=== PATIENT | male | born 1980 | race African-American/Black ===

== ENCOUNTER 2025-02-10 13:41 | Outpatient (AMB) | payer OTHER, SELFPAY ==
--- OUTSIDE RECORDS SUMMARY | 2024-12-25 17:00 | XMS_ITS ---
Author Organization [facility] Address [address] [place] [id number] Care Team Providers Care Residential Mental Health Worker Name Role Phone [facility] Care Provi polly [phone] [facility], Nursing Unavailable [phone] Migration, Provider Unavailable Unavailable REASON FOR VISIT Multum To Medispan Conversion Encounter Medications Medication SIG (Take, Route, Fr equency, Duration) Notes Start Date End Date Status Naltrexone HCl 50 MG 1 tab(s) orally once a day Active Encounters Encounter Location Date Provider Diagnosis [address] [id number] 12/25/2024 Provider Migration Plan Of Treatment No Information Progress Notes * Dionisio OSPINA JrDOB:[birth year] (45 yo M)Acc No.[id number]:12/25/2024 Patient: Susi Dionisio STERLING Jr Provider: :1980 A ge:44 Y S ex:Male Date:12/25/2024 Address:[address] [place], [place] [id number] Pcp:[facility] nter Subjective: * Chief Complaints: * 1 . Multum To Medispan Conversion Encounter. * Medical History: * Medications: T aking Naltrexone HCl 50 MG Tablet 1 tab(s) orally once a day Objective: * Vitals: Assessment: Plan: * Treatment: * Images: Billing Information: * Visit Code: * Procedure Codes: * Electronic signature of Prov ider Migration on 02/10/2025 at 04:42 PM EDT Sign off status: Pending * Provider: Date: 0 12/25/2024 Generated for Joana guzman/Rosina/Umang on: 1 04:42 PM EDT
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
[2025-02-10 14:10] VITALS: BP 129/58; PULSE 62; O2SAT 98; BMI 32.1
--- OUTSIDE RECORDS SUMMARY | 2025-02-10 16:42 | XMS_ITS | Clinical Summary ---
Author Organization [address] [facility] Address [address] [place] [address] Phone Care Team Providers Care Room Service Bellhop Name Role Phone Physician, No Pcp Primary Care Provider Unavaila ble Allergies No known active allergies Medications lidocaine (LIDODERM) 5 % patchIndication s:Cervical strain, acute, initial encounter Apply 1 patch topically 1 (one) time each day for 14 days. Remove & discard patch within 12 hours or as directed by . 14 each 01/12/20 25 Encounters Date Type Department Care Team Description 12/28/2024 5:32 PM EDT - 12/28/2024 8:00 PM EDT Emergency [facility] Emergency [address] [place] [address] Kristen White MD Cervical strain, acute, initial encounter (Primary Dx); Strain of left shoulder, initial encounter; Rib contusion, left, initial encounter Discharge Disposition: Home or Self Care from Last 3 Months Surgical History Surgery Date Site/Laterality Comments OTHER SURGICAL HISTORY 05/23/2022 Right PROCEDURE: [facility] TEAEC W/WO PATCH GRAFT ILIOFEMORAL OTHER SURGICAL HISTORY 05/23/2022 PROCEDURE: [facility] TEA[facility] W/WO PATCH GRAFT DEEP PROFUNDA FEMORAL Medical History Medical History Date Comments HTN (hypertension) DX:HTN (hyper tension) Depression DX:Depression Social History Tobacco Use Types Packs/Day Years Used Date Smoking Tobacco: Every Day Cigarettes Smokeless Tobacco: Never Alcohol Use Standard Drinks/Week Comments Not Currently 0 (1 standard drink = 0.6 oz pur e alcohol) Sex and Gender Information Value Date Recorded Sex Assigned at Not on file Legal Sex Male 5:01 PM EST Gender Identity Not on file Sexual Orientation Not on file Obstetrics History Last Filed Vital Signs Vital Sign Reading Time Taken Comments Blood Pressure 120/73 12/28/2024 2:37 PM EDT Pulse 79 12/28/2024 2:37 PM EDT Temperature 36.9 C (98.4 F) 12/28/2024 2:37 PM EDT Respiratory Rate 18 12/28/2024 2:37 PM EDT Oxygen Saturation 97% 12/28/2024 2:37 PM EDT Inhaled Oxygen Concentration - - Weight 90.7 kg (200 lb) 12/28/2024 2:37 PM EDT Height 170.2 cm (5' 7 ) 12/28/2024 2:37 PM EDT Body Mass Index 31.32 12/28/2024 2:37 PM EDT Plan of Treatment Health Maintenance Due Date Last Done Comments Hepatitis B Vaccines (1 of 3 - 19+ 3-dose series) 2001 Pneumococcal Vaccine: Pediatrics (0 to 5 Years) and At-Risk Patients (6 to 49 Years) (1 of 2 - PCV) 2001 HPV Vaccines (1 - 3-dose SCDM series) 2009 Cholesterol Screening (Lipid Panel) 03/13/2022 HIV Screening 03/13/2022 Hepatitis C Screening 03/13/2022 Medicare Annual Wellness Visit 03/13/2022 Social Influencers of Health Screening 03/13/2022 Depression Screening 04/14/2024 COVID-19 Vaccine ( - season) 2024 Influenza Vaccine (#1) 2024 Hypertension/CHF/CAD Annual BMP Blood Test 10/08/2025 10/08/2024, 04/02/2023, 03/31/2023, Additional history exists DTaP,Tdap,and Td Vaccines (3 - Td or Tdap) 01/21/2033 01/21/2023, 07/26/2015 RSV Immunization Adult Patients (1 - 1-dose 75+ series) 2057 HIB Vaccines Aged Out No longer eligi ble based on patient's age to complete this topic Hepatitis A Vaccines Aged Out No long er eligible based on patient's age to complete this topic IPV Vaccines Aged Out No longer eligi ble based on patient's age to complete this topic MMR Vaccines Aged Out No longer eligi ble based on patient's age to complete this topic Meningococcal ACWY Vaccine Aged Out N o longer eligible based on patient's age to complete this topic Meningococcal B Vaccine Aged Out No l onger eligible based on patient's age to complete this topic RSV Immunization Patients Under 20 months Aged Out No longer eligible based on patient's age to complete this topic Varicella Vaccines Aged Out No longer eligible based on patient's age to complete this topic Procedures Procedure Name Priority Date/Time Associated Diagnosis Comments XR LUMBAR SPINE 2-3 VIEWS STAT 12/28/2024 6:43 PM EDT XR THORACIC SPINE 2 VIEWS STAT 12/28/2024 6:43 PM EDT XR SHOULDER 2+ VIEWS LEFT STAT 12/28/2024 6:43 PM EDT COMPREHENSIVE METABOLIC PANEL STAT 10/08/2024 8:12 PM EDT from Last 3 Months or Most Recently Relevant to Health Maintenance Results * XR Shoulder 2+ Views Left (12/28/2024 6:43 PM EDT) Anatomical Region Laterality Modality Upper Extremities, Shoulder Left Radi ographic Imaging 12/29/2024 8:09 AM EDT Impressions 12/29/2024 8:10 AM EDT Degenerative changes. No acute findings. -------- FINAL REPORT -------- Dictated By: Malcolm Garcia Dictated Date: 12/29/2024 08:09 ET Assigned Physician: Malcolm Garcia Reviewed and Electronically Signed By: Malcolm Garcia Signed Date: 12/29/2024 08:10 ET Workstation ID: [id number] Transcribed By: Self Edit Transcribed Date: 12/29/2024 08:09 ET Narrative 12/29/2024 8:10 AM EDT PROCEDURE: Radiographs of the left shoulder. HISTORY: accidental fall. COMPARISON: None. FINDINGS: 3 views of the left shoulder. There is no acute fracture or malalignment. Small glenohumeral osteophytes with mild articular surface irregularity. Minimal degenerative irregularity of the AC joint. Periarticular soft tissues are normal. Procedure Note Malcolm Garcia MD - 12/29/2024 PROCEDURE: Radiographs of the left shoulder. HISTORY: accidental fall. COMPARISON: None. FINDINGS: 3 views of the left shoulder. There is no acute fracture or malalignment.Small glenohumeral osteophytes with mild articular surface irregularity.Minimal degenerative irregularity of the AC joint. Periarticular softtissues are normal. IMPRESSION: Degenerative changes. No acute findings. -------- FINAL REPORT -------- Dictated By: Malcolm Garcia Dictated Date: 12/29/2024 08:09 ET Assigned Physician: Malcolm Garcia Reviewed and Electronically Signed By: Malcolm Garcia Signed Date: 12/29/2024 08:10 ET Workstation ID: [id number] Transcribed By: Self Edit Transcribed Date: 12/29/2024 08:09 ET Kristen White MD IMG XR PROCEDURES Final Result * XR Lumbar Spine 2-3 Views (12/28/2024 6:43 PM EDT) Anatomical Region Laterality Modality Spine, L-spine Radiographic Mindy ging 12/29/2024 8:55 AM EDT Impressions 12/29/2024 8:57 AM EDT No acute findings. -------- FINAL REPORT -------- Dictated By: Malcolm Garcia Dictated Date: 12/29/2024 08:55 ET Assigned Physician: Malcolm Garcia Reviewed and Electronically Signed By: Malcolm Garcia Signed Date: 12/29/2024 08:57 ET Workstation ID: [id number] Transcribed By: Self Edit Transcribed Date: 12/29/2024 08:55 ET Narrative 12/29/2024 8:57 AM EDT PROCEDURE: Radiographs of the lumbar spine. HISTORY: accidental fall. COMPARISON: 10/09/2024. FINDINGS: Multilevel ricardo and pedicle screw fusion hardware extending from the lower thoracic region into the lumbar region. The hardware extends superiorly out of the field of view. Superior endplate fracture at T11 with approximately 50% maximal height loss, stable compared with a CT on 10/09/2024. There is an interbody cage device at T10-11. IVC filter. Mild degenerative changes of the lower lumbar facet joints. Surgical clips are noted in the anterior pelvis. Procedure Note Malcolm Garcia MD - 12/29/2024 PROCEDURE: Radiographs of the lumbar spine. HISTORY: accidental fall. COMPARISON: 10/09/2024. FINDINGS: Multilevel ricardo and pedicle screw fusion hardware extending from the lowerthoracic region into the lumbar region. The hardware extends superiorlyout of the field of view. Superior endplate fracture at T11 with approximately 50% maximal heightloss, stable compared with a CT on 10/09/2024. There is an interbody cagedevice at T10-11. IVC filter. Mild degenerative changes of the lowerlumbar facet joints. Surgical clips are noted in the anterior pelvis. IMPRESSION: No acute findings. -------- FINAL REPORT -------- Dictated By: Malcolm Garcia Dictated Date: 12/29/2024 08:55 ET Assigned Physician: Malcolm Garcia Reviewed and Electronically Signed By: Malcolm Garcia Signed Date: 12/29/2024 08:57 ET Workstation ID: [id number] Transcribed By: Self Edit Transcribed Date: 12/29/2024 08:55 ET Kristen White MD IMG XR PROCEDURES Final Result * XR Thoracic Spine 2 Views (12/28/2024 6:43 PM EDT) Anatomical Region Laterality Modality Spine, T-spine Radiographic Mindy ging 12/29/2024 8:08 AM EDT Impressions 12/29/2024 8:09 AM EDT No acute findings. -------- FINAL REPORT -------- Dictated By: Malcolm Garcia Dictated Date: 12/29/2024 08:08 ET Assigned Physician: Malcolm Garcia Reviewed and Electronically Signed By: Malcolm Garcia Signed Date: 12/29/2024 08:09 ET Workstation ID: [id number] Transcribed By: Self Edit Transcribed Date: 12/29/2024 08:08 ET Narrative 12/29/2024 8:09 AM EDT Procedure: Radiographs of the thoracic spine. HISTORY: accidental fall. COMPARISON: None. FINDINGS: 3 views of the thoracic spine. Partially visible multisegment ricardo and pedicle screw fusion hardware in the lower thoracic region extending into the lumbar region and out of the field of view. An interbody cage device is also noted at one of the lower thoracic levels, and an IVC filter is partially visible. No significant degenerative change. Alignment is normal. No suspicious bony lesion. Normal paraspinous soft tissues. Procedure Note Malcolm Garcia MD - 12/29/2024 Procedure: Radiographs of the thoracic spine. HISTORY: accidental fall. COMPARISON: None. FINDINGS: 3 views of the thoracic spine. Partially visible multisegment ricardo andpedicle screw fusion hardware in the lower thoracic region extending intothe lumbar region and out of the field of view. An interbody cage deviceis also noted at one of the lower thoracic levels, and an IVC filter ispartially visible. No significant degenerative change. Alignment isnormal. No suspicious bony lesion. Normal paraspinous soft tissues. IMPRESSION: No acute findings. -------- FINAL REPORT -------- Dictated By: Malcolm Garcia Dictated Date: 12/29/2024 08:08 ET Assigned Physician: Malcolm Garcia Reviewed and Electronically Signed By: Malcolm Garcia Signed Date: 12/29/2024 08:09 ET Workstation ID: [id number] Transcribed By: Self Edit Transcribed Date: 12/29/2024 08:08 ET us Kristen White MD IMG XR PROCEDURES Final Result * (ABNORMAL) Comprehensive metabolic panel (10/08/2024 8:12 PM EDT) Sodium 135 133 - 145 mmol/L LAB CHEMISTRY METHOD 10/08/2024 8:[address] [facility] Potassium 3.7 3.5 - 5.5 mmol/L LAB CHEMISTRY METHOD 10/08/2024 8:54 PM [facility] Chloride 101 96 - 110 mmol/L LAB CHEMISTRY METHOD 10/08/2024 8:54 PM [facility] CO2 28 21 - 32 mmol/L LAB CHEMISTRY METHOD 10/08/2024 8:54 PM [facility] Anion Gap 6 3 - 11 LAB CHEMISTRY METHOD 10/08/2024 8:54 PM [facility] Glucose 94 70 - 100 mg/dL LAB CHEMISTRY METHOD 10/08/2024 8:54 PM [facility] BUN 11 5 - 25 mg/dL LAB CHEMISTRY METHOD 10/08/2024 8:54 PM [facility] Creatinine 0.82 0.70 - 1.30 mg/dL LAB CHEMISTRY METHOD 10/08/2024 8:54 PM [facility] eGFR 112 >=60 mL/min/1. 73m2 LAB CHEMISTRY METHOD 10/08/2024 8:54 PM [facility] Comment:Calculation based on the Chronic Kidney Disease Epidemiology Collaboration (CKD-EPI) equation refit without adjustment for race. BUN/Creatinine Ratio 13.4 LAB CHEMISTRY METHOD 10/08/2024 8:54 PM [facility] Calcium 9.3 8.5 - 10.5 mg/dL LAB CHEMISTRY METHOD 10/08/2024 8:54 PM [facility] AST (SGOT) 12 10 - 42 unit/L LAB CHEMISTRY METHOD 10/08/2024 8:54 PM [facility] ALT (SGPT) 27 10 - 60 unit/L LAB CHEMISTRY METHOD 10/08/2024 8:54 PM [facility] Alkaline Phosphatase 170(H) 42 - 121 unit/L LAB CHEMISTRY METHOD 10/08/2024 8:54 PM [facility] Total Protein 7.6 6.0 - 8.0 g/dL LAB CHEMISTRY METHOD 10/08/2024 8:[address] [facility] Albumin 4.0 3.2 - 5.0 g/dL LAB CHEMISTRY METHOD 10/08/2024 8:[address] [facility] Total Bilirubin 0.4 0.0 - 1.4 mg/dL LAB CHEMISTRY METHOD 10/08/2024 8:[address] 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
--- OUTSIDE RECORDS SUMMARY | 2025-02-10 16:42 | XMS_ITS | Patient Health Record ---
Author Organization [facility] Address [address] [place] [address] Care Team Providers Care Senior Mechanical Design Engineer Name Role Phone [facility] Provi polly [phone] [facility], Nursing Unavailable [phone] Migration, Provider Unavailable Unavailable Reason For Referral No Information Medications Medication SIG (Take, Route, Fr equency, Duration) Notes Start Date End Date Status Naltrexone HCl 50 MG 1 tab(s) orally once a day Active Social History Tobacco Use: Social History Observation Description Date Details (start date - stop date) Current Smoker NA - NA Tobacco Use Assessment MU Question Answer Notes What is your current smoking status? current smo ker How often do you smoke? every day How many cigarettes a day do you smoke? 6-10 How soon after you wake up d o you smoke your first cigarette? 6-30 minutes Are you interested in quitting? 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) Cannabis abuse with unspecified cannabis-induced disorder (F12.19) Active confirmed Problem Tobacco user (716098876) Nicotine dependence, cigarettes, uncomplicated (F17.210) Active confirmed Problem Dysthymia (82446271) Dysthymic disorder (F34.1) Active confirmed Problem Homelessness (31527959) Homelessness (Z59.0) Active confirmed Encounters Encounter Location Date Provider Diagnosis [address] [address] 12/25/2024 Provider Migration Plan Of Treatment No Information Insurance Providers Payer Name Payer Address Payer Phone Subscriber Number Group Number Insured Name Patient Relationship to Insured Coverage Start Date Coverage End Date [facility] [address] [place] [phone] [id number] Dionisio Cutler Self - patient is the insured
--- OUTSIDE RECORDS SUMMARY | 2025-02-10 16:42 | XMS_ITS | Encounter Summary ---
Author Organization [facility] Address [address] [place] [address] Care Team Providers Care Carpenter Apprentice Name Role Phone Physician, No Pcp Primary Care Provider Unavaila ble Encounter Details Date Type Department Care Team (Late st Contact Info) Description 09/16/2024 Lab Requisition [facility] [address] [facility] [place] [phone] Baljit Godinez MD [address] [facility] [address] [place] [phone] Pyuria Social History Tobacco Use Types Packs/Day Years Used Date Smoking Tobacco: Every Day Cigarettes Smokeless Tobacco: Never Alcohol Use Standard Drinks/Week Comments Yes 0 (1 standard drink = 0.6 oz pur e alcohol) Sex and Gender Information Value Date Recorded Sex Assigned at Not on file Legal Sex Male 5:01 PM EST Gender Identity Not on file Sexual Orientation Not on file documented as of this encounter Plan of Treatment Not on file documented as of this encounter Procedures Procedure Name Priority Date/Time Associated Diagnosis Comments BACTERIAL IDENTIFICATION AND SUSCEPTIBILITY, AEROBIC Routine 09/15/2024 12:00 AM EDT Pyuria documented in this encounter Results * (ABNORMAL) Bacterial identification and susceptibility, aerobic (09/15/2024 12:00 AM EDT) Culture, Bacterial ID and Sensitivity Klebsiella pneumoniae ssp pneumoniae(A) RACHEL 09/19/2024 7:24 AM EDT [facility] ([facility]) [facility] Comment: This is an edited result. Previous organism was Gram negative bacilli on 09/17/2024 at 0800 EDT. Culture, Bacterial ID and Sensitivity Pseudomonas aeruginosa(A) RACHEL 09/19/2024 7:24 AM EDT [facility] ([facility]) [facility] Comment: The organism value for this result has been updated. These results have been appended to the previously preliminary verified report. Other Urinary bladder structure / Unknown 09/15/2024 09/16/2024 10:34 AM EDT Narrative Organism Antibiotic Method Susceptibility Klebsiella pneumoniae ssp pneumoniae Amoxicillin/Clavulanate RACHEL <=2 ug/ml: Susceptible Klebsiella pneumoniae ssp pneumoniae Ampicillin/Sulbactam RACHEL 4 ug/ml: Susceptible Klebsiella pneumoniae ssp pneumoniae Piperacillin/Tazobactam RACHEL <=4 ug/ml: Susceptible Klebsiella pneumoniae ssp pneumoniae Cefazolin (Urine) RACHEL <=1 ug/ml: Susceptible Klebsiella pneumoniae ssp pneumoniae Cefoxitin RACHEL <=4 ug/ml: Susceptible Klebsiella pneumoniae ssp pneumoniae Ceftazidime RACHEL <=0.5 ug/ml: Susceptible Klebsiella pneumoniae ssp pneumoniae Ceftriaxone RACHEL <=0.25 ug/ml: Susceptible Klebsiella pneumoniae ssp pneumoniae Cefepime RACHEL <=0.12 ug/ml: Susceptible Klebsiella pneumoniae ssp pneumoniae Meropenem RACHEL <=0.25 ug/ml: Susceptible Klebsiella pneumoniae ssp pneumoniae Amikacin RACHEL <=1 ug/ml: Susceptible Klebsiella pneumoniae ssp pneumoniae Gentamicin RACHEL <=1 ug/ml: Susceptible Klebsiella pneumoniae ssp pneumoniae Ciprofloxacin RACHEL 0.5 ug/ml: Intermediate Klebsiella pneumoniae ssp pneumoniae Levofloxacin RACHEL 0.5 ug/ml: Susceptible Klebsiella pneumoniae ssp pneumoniae Nitrofurantoin RACHEL 32 ug/ml: Susceptible Klebsiella pneumoniae ssp pneumoniae Trimethoprim/Sulfamethox azole RACHEL <=20 ug/ml: Susceptible Pseudomonas aeruginosa Ceftazidime RACHEL 2 ug/ml: Susceptible Pseudomonas aeruginosa Cefepime RACHEL 2 ug/ml: Susceptible Pseudomonas aeruginosa Meropenem RACHEL <=0.25 ug/ml: Susceptible Pseudomonas aeruginosa Amikacin RACHEL 4 ug/ml: Susceptible Pseudomonas aeruginosa Ciprofloxacin RACHEL 0.5 ug/ml: Susceptible Pseudomonas aeruginosa Levofloxacin RACHEL 1 ug/ml: Susceptible Pseudomonas aeruginosa Amikacin DISK DIFFUSION Pseudomonas aeruginosa Cefepime DISK DIFFUSION Pseudomonas aeruginosa Ceftazidime DISK DIFFUSION Pseudomonas aeruginosa Ciprofloxacin DISK DIFFUSION Pseudomonas aeruginosa Levofloxacin DISK DIFFUSION Pseudomonas aeruginosa Meropenem DISK DIFFUSION Pseudomonas aeruginosa Piperacillin/Tazobactam DISK DI FFUSION Susceptible Pseudomonas aeruginosa Tobramycin DISK DIFFUSION Baljit Godinez MD LAB MICROBIOLOGY - GENERAL ORDER PETAR Final Result [facility] ([facility]) [facility] [address] [place] [address], documented in this encounter Visit Diagnoses Diagnosis Pyuria Other nonspecific finding on examination of urine documented in this encounter 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
--- OUTSIDE RECORDS SUMMARY | 2025-02-10 16:42 | XMS_ITS | Encounter Summary ---
Author Organization [facility] Address [address] [place] [address] Care Team Providers Care Nickel Plant Operator Name Role Phone Physician, No Pcp Primary Care Provider Unavaila ble Encounter Details Date Type Department Care Team (Latest Contact Info) Description 06/02/2024 Lab Requisition [facility] - Main Lab [address] [facility] [place] [phone] Baljit Godinez MD [address] [facility] [address] [place] [phone] Neuromuscular dysfunction of bladder, unspecified Social History Tobacco Use Types Packs/Day Years [...] Procedure Name Priority Date/Time Associated Diagnosis Comments CULTURE URINE Routine 06/02/2024 12:00 AM EST Neuromuscular dysfunction of bladder, unspecified documented in this encounter Results * (ABNORMAL) Culture urine (06/02/2024 12:00 AM EST) Culture, Urine >100,000 CFU/mL Klebsiella pneumoniae ssp pneumoniae(A) RACHEL 06/07/2024 9:43 AM EST [facility] ([facility] Comment: This is an edited result. Previous organism was Gram negative bacilli on 06/04/2024 at 1129 EST. Culture, Urine >100,000 CFU/mL Escherichia coli(A) RACHEL 06/07/2024 9:43 AM EST [facility] Comment: The organism value for this result has been updated. These results have been appended to the previously preliminary verified report. This is an edited result. Previous organism was Gram negative bacilli on 06/04/2024 at 1129 EST. Culture, Urine 50,000-100,000 CFU/mL Pseudomonas aeruginosa(A) RACHEL 06/07/2024 9:43 AM EST [facility] Comment: The organism value for this result has been updated. These results have been appended to the previously preliminary verified report. This is an edited result. Previous organism was Gram negative bacilli on 06/06/2024 at 0914 EST. Urine Urine specimen from urinary conduit / Unknown 06/02/2024 06/02/2024 6:06 PM EST Narrative Organism Antibiotic Method Susceptibility Klebsiella pneumoniae ssp pneumoniae Amoxicillin/Clavulanate RACHEL 8 ug/ml: Susceptible Klebsiella pneumoniae ssp pneumoniae Ampicillin/Sulbactam RACHEL >=32 ug/ml: Resistant Klebsiella pneumoniae ssp pneumoniae Piperacillin/Tazobactam RACHEL 8 ug/ml: Susceptible Klebsiella pneumoniae ssp pneumoniae Cefazolin (Urine) RACHEL 4 ug/ml: Susceptible Klebsiella pneumoniae ssp pneumoniae Cefoxitin [...] Susceptible Klebsiella pneumoniae ssp pneumoniae Ciprofloxacin RACHEL <=0.06 ug/ml: Susceptible Klebsiella pneumoniae ssp pneumoniae Levofloxacin RACHEL <=0.12 ug/ml: Susceptible Klebsiella pneumoniae ssp pneumoniae Nitrofurantoin RACHEL 64 ug/ml: Intermediate Klebsiella pneumoniae ssp pneumoniae Trimethoprim/Sulfamethoxazo le RACHEL <=20 ug/ml: Susceptible Escherichia coli Amoxicillin/Clavulanate RACHEL 4 ug/ml: Susceptible Escherichia coli Ampicillin/Sulbactam RACHEL 16 ug/ml: Intermediate Escherichia coli Piperacillin/Tazobactam RACHEL <=4 ug/ml: Susceptible Escherichia coli Cefazolin (Urine) RACHEL 4 ug/ml: Susceptible Escherichia coli Cefoxitin RACHEL <=4 ug/ml: Susceptible Escherichia coli Ceftazidime RACHEL <=0.5 ug/ml: Susceptible Escherichia coli Ceftriaxone RACHEL <=0.25 ug/ml: Susceptible Escherichia coli Cefepime RACHEL <=0.12 ug/ml: Susceptible Escherichia coli Meropenem RACHEL <=0.25 ug/ml: Susceptible Escherichia coli Amikacin RACHEL 2 ug/ml: Susceptible Escherichia coli Gentamicin RACHEL <=1 ug/ml: Susceptible Escherichia coli Ciprofloxacin RACHEL <=0.06 ug/ml: Susceptible Escherichia coli Levofloxacin RACHEL <=0.12 ug/ml: Susceptible Escherichia coli Nitrofurantoin RACHEL <=16 ug/ml: Susceptible Escherichia coli Trimethoprim/Sulfame thoxazo le RACHEL <=20 ug/ml: Susceptible Pseudomonas aeruginosa Piperacillin/Tazobactam RACHEL <=4 ug/ml: Susceptible Pseudomonas aeruginosa Ceftazidime RACHEL 2 ug/ml: Susceptible Pseudomonas aeruginosa Cefepime RACHEL 2 ug/ml: Susceptible Pseudomonas aeruginosa Meropenem RACHEL <=0.25 ug/ml: Susceptible Pseudomonas aeruginosa Amikacin RACHEL 2 ug/ml: Susceptible Pseudomonas aeruginosa Ciprofloxacin RACHEL 0.12 ug/ml: Susceptible Pseudomonas aeruginosa Levofloxacin RACHEL 0.25 ug/ml: Susceptible us Baljit Godinez MD LAB MICROBIOLOGY - GENERAL ORDER PETAR Final Result Performing Organization Address [facility] Co de Phone Number [facility] [address] [place] [address], documented in this encounter Visit Diagnoses Diagnosis Neuromuscular dysfunction of bladder, unspecified documented in this encounter Additional Health Concerns 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
--- OUTSIDE RECORDS SUMMARY | 2025-02-10 16:42 | XMS_ITS | Encounter Summary ---
Author Organization [facility] Address [address] [place] [address] Care Team Providers Care Incendiaries Supervisor Name Role Phone Physician, No Pcp Primary Care Provider Unavaila ble Encounter Details Date Type Department Care Team (Late st Contact Info) Description 03/04/2024 Lab Requisition [facility] - Main Lab [address] [facility] [place] [phone] Baljit Godinez MD [address] [facility] [address] [place] [phone] Frequency of micturition Social History Tobacco Use Types Packs/Day Years [...] on file documented as of this encounter Visit Diagnoses Diagnosis Frequency of micturition Urinary frequency documented in this encounter 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
--- OUTSIDE RECORDS SUMMARY | 2025-02-10 16:42 | XMS_ITS | Encounter Summary ---
Author Organization [facility] Address [address] [place] [address] Care Team Providers Care Clinical Staff Anesthesiologist Name Role Phone Physician, No Pcp Primary Care Provider Unavaila ble Encounter Details Date Type Department Care Team (Late st Contact Info) Description 03/08/2024 Lab Requisition [facility] - Main Lab [address] [facility] [place] [phone] Baljit Godinez MD [address] [place] [facility] [address] [place] [phone] Frequency of micturition Social History Tobacco Use [...] Date/Time Associated Diagnosis Comments CULTURE URINE Routine 03/08/2024 10:01 AM EST Frequency of micturition documented in this encounter Results * (ABNORMAL) Culture urine (03/08/2024 10:01 AM EST) Culture, Urine >100,000 CFU/mL Klebsiella pneumoniae ssp pneumoniae(A) RACHEL 03/11/2024 8:45 AM EST [facility] ([facility] Comment: This is an edited result. Previous organism was Gram negative bacilli on 03/10/2024 at 1036 EST. Culture, Urine >100,000 CFU/mL Escherichia coli(A) RACHEL 03/11/2024 8:45 AM EST [facility] ([facility]) [facility] Comment: The organism value for this result has been updated. These results have been appended to the previously preliminary verified report. Urine Urine specimen obtained by clean catch procedure / Unknown 03/08/2024 10:01 AM EST 03/08/2024 6:28 PM EST Narrative Organism Antibiotic Method Susceptibility Klebsiella pneumoniae ssp pneumoniae Amoxicillin/Clavulanate RACHEL 8 ug/ml: Susceptible Klebsiella pneumoniae ssp pneumoniae Ampicillin/Sulbactam RACHEL >=32 ug/ml: Resistant Klebsiella pneumoniae ssp pneumoniae Piperacillin/Tazobactam RACHEL 16 ug/ml: Intermediate Klebsiella pneumoniae ssp pneumoniae Cefazolin (Urine) RACHEL [...] <=20 ug/ml: Susceptible Escherichia coli Amoxicillin/Clavulanate RACHEL 8 ug/ml: Susceptible Escherichia coli Ampicillin/Sulbactam RACHEL 16 [...] Susceptible Escherichia coli Trimethoprim/Sulfame thoxazo le RACHEL >=320 ug/ml: Resistant us Baljit Godinez MD LAB MICROBIOLOGY - GENERAL ORDER PETAR Final Result [facility] ([facility]) [facility] [address] [place] [address], documented in this encounter Visit Diagnoses Diagnosis Frequency of micturition Urinary frequency documented in this encounter 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
--- OUTSIDE RECORDS SUMMARY | 2025-02-10 16:42 | XMS_ITS | Encounter Summary ---
Author Organization [facility] Address [address] [place] [address] Care Team Providers Care Fishery Division Chief Name Role Phone Physician, No Pcp Primary Care Provider Unavaila ble Encounter Details Date Type Department Care Team (Late st Contact Info) Description 10/08/2024 Lab Requisition [facility] - Main Lab [address] [facility] [place] [phone] Joleen Cool MD [address] [facility] [address] [place], [place] [phone] Dysuria Social History Tobacco Use Types Packs/Day Years [...] on file documented as of this encounter Functional Status * Calculated C-SSRS Risk Score (Lifetime/Recent) Answer Date of Assessment Author No Risk Indicated 10/08/2024 5:58 PM EDT Smitha Cannon RN * [place] Suicide Severity Rating Scale (Screener/Recent Self-Report) Question Answer Date of Assessment Author 2. Non-Specific Active Suici tom Thoughts (Past 1 Month) No 10/08/2024 5:58 PM EDT Smitha Cannon RN 6. Suicidal Behavior (Lifetime) No 5:58 PM EDT Smitha Cannon RN documented as of this encounter Plan of Treatment Not on file documented as of this encounter Procedures Procedure Name Priority Date/Time Associated Diagnosis Comments BACTERIAL IDENTIFICATION AND SUSCEPTIBILITY, AEROBIC Routine 10/07/2024 7:48 AM EDT Dysuria documented in this encounter Results * (ABNORMAL) Bacterial identification and susceptibility, aerobic (10/07/2024 7:48 AM EDT) Culture, Bacterial ID and Sensitivity Achromobacter species(A) RACHEL 10/11/2024 10:35 AM EDT [facility] Comment: The organism value for this result has been updated. These results have been appended to the previously preliminary verified report. This is an edited result. Previous organism was Gram negative bacilli on 10/09/2024 at 1319 EDT. Culture, Bacterial ID and Sensitivity Vancomycin resistant Enterococcus faecalis(A) RACHEL 10/11/2024 10:35 AM EDT [facility] Comment: The organism value for this result has been updated. These results have been appended to the previously preliminary verified report. Edited result: Previously reported as Enterococcus species on 10/09/2024 at 1319 EDT. Other Urine specimen from urinary conduit / Unknown Non-blood Collection / Unknown 10/07/2024 7:48 AM EDT 10/08/2024 10:23 AM EDT Narrative Organism Antibiotic Method Susceptibility Achromobacter species Amikacin RACHEL 4 ug/ml: Susceptible Achromobacter species Ciprofloxacin RACHEL 0.5 ug/ml: Susceptible Achromobacter species Trimethoprim/Sulfa methoxazol e RACHEL <=20 ug/ml: Susceptible Vancomycin resistant Enterococcus faecalis Benzylpenicillin RACHEL 8 ug/ml: Susceptible Vancomycin resistant Enterococcus faecalis Ampicillin RACHEL <=2 ug/ml: Susceptible Vancomycin resistant Enterococcus faecalis Ciprofloxacin RACHEL >=8 ug/ml: Resistant Vancomycin resistant Enterococcus faecalis Levofloxacin RACHEL >=8 ug/ml: Resistant Vancomycin resistant Enterococcus faecalis Linezolid RACHEL 2 ug/ml: Susceptible Vancomycin resistant Enterococcus faecalis Vancomycin RACHEL >=32 ug/ml: Resistant Vancomycin resistant Enterococcus faecalis Tetracycline RACHEL >=16 ug/ml: Resistant Vancomycin resistant Enterococcus faecalis Nitrofurantoin RACHEL <=16 ug/ml: Susceptible Joleen Cool MD LAB MICROBIOLOGY - G ENERAL ORDERABLES Final Result [facility] [address] [place] [address], documented in this encounter Visit Diagnoses Diagnosis Dysuria documented in this encounter 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
== END 2025-02-10 14:26 | disposition home or self-care (01) ==
PROVIDERS: PCP Internal Medicine; Visit Provider Anesthesiology
DX: G82.21 Paraplegia, complete (principal); G89.4 Chronic pain syndrome; S24.104S Unspecified injury at T11-T12 level of thoracic spinal cord, sequela
CPT/HCPCS: 99203

== ENCOUNTER → 2025-02-10 13:41 | Outpatient (BNVA) | payer OTHER, SELFPAY | PROVIDERS: PCP Internal Medicine; Visit Provider Anesthesiology | DX: G89.4 Chronic pain syndrome (principal); G82.20 Paraplegia, unspecified; S24.104S Unspecified injury at T11-T12 level of thoracic spinal cord, sequela | CPT/HCPCS: 99202 ==